=== PATIENT | female | born 1990 | race Caucasian/White ===

== ENCOUNTER 2022-07-22 21:17 | Emergency (ER) | payer MEDICAID ==
[~2022-07-22] VITALS: Ht 160 cm; Wt 55.3 kg
[2022-07-22 21:48] VITALS: BP 135/80
[2022-07-22] MEDS ORDERED: ACETAMINOPHEN 325 MG TAB PO ONE (22:45)
[2022-07-22] MEDS ORDERED: KETOROLAC 15 MG/ML VIAL IM ONE (22:45)
[2022-07-22] MEDS ORDERED: ONDANSETRON 4 MG ODT PO ONE (22:45)
[2022-07-22 23:11] LABS: BASOPHILS % (AUTO) 0.3 % (0.0-2.0); EOSINOPHILS # (AUTO) 0.1 K/uL (0-0.4); EOSINOPHILS % (AUTO) 1.3 % (0.0-4.0); HEMATOCRIT 37.1 % (36-48); HEMOGLOBIN 12.5 g/dL (12.0-16.0); LYMPHOCYTES # (AUTO) 3.2 K/uL (2.5-16.5); MEAN CORPUSCULAR HEMOGLOBIN 29 pg (27-31); MEAN CORPUSCULAR HGB CONC 34 g/dL (33-37); MEAN CORPUSCULAR VOLUME 87.2 fL (80-94); MONOCYTES # (AUTO) 0.8 K/uL (0.8-1.0); MONOCYTES % (AUTO) 8.8 % (1.7-9.3); NEUTROPHILS # (AUTO) 4.9 K/uL (1.8-7.7); NEUTROPHILS % (AUTO) 54.6 % (42.2-75.2); PLATELET COUNT (AUTO) 334 K/uL (140-450); RED BLOOD CELL COUNT(AUTO) 4.25 MIL/uL (4.20-5.40); RED CELL DISTRIBUTION WIDTH 13.1 % (11.6-13.7)
[2022-07-22 23:34] LABS: ALBUMIN 3.7 g/dL (3.4-5.0); ANION GAP 7.7 (8-16); CARBON DIOXIDE 30.9 mmol/L (21-32); CREATININE 0.8 mg/dL (0.6-1.3); POTASSIUM 3.6 mmol/L (3.5-5.1); TOTAL BILIRUBIN 0.5 mg/dL (0.0-1.0)
[2022-07-23] MEDS ORDERED: ONDANSETRON 4 MG ODT ONE (00:29)
[2022-07-23] MEDS ORDERED: ACETAMINOPHEN 325 MG TAB ONE (00:29)
[2022-07-23] MEDS ORDERED: KETOROLAC 15 MG/ML VIAL ONE (00:30)
--- NOTE | 2022-07-23 00:48 | NUR ---
Pt placed in ED rm 12. Placed on monitor. Appears in no acute distress.
--- NOTE | 2022-07-23 00:50 | NUR ---
MD Smith at bedside examining pt.
--- NOTE | 2022-07-23 01:21 | NUR ---
Urine collected and sent to lab.
[2022-07-23 01:30] LABS: APPEARANCE,URINE CLEAR (CLEAR); BILIRUBIN,URINE NEGATIVE (NEGATIVE); BLOOD, URINE 1+ (NEGATIVE); COLOR,URINE YELLOW (YELLOW); LEUKOCYTE ESTERASE ,URINE NEGATIVE (NEGATIVE); NITRITE, URINE NEGATIVE (NEGATIVE); UGLUCOSE NEGATIVE (NEGATIVE)
[2022-07-23 01:38] LABS: WBC,URINE 0-5 /HPF (0-5)
[2022-07-23] MEDS ORDERED: ONDA-188 SL (02:03)
[2022-07-23] MEDS ORDERED: ACET-10509 PO (02:03)
[2022-07-23] MEDS ORDERED: FAMO-92 PO (02:03)
[2022-07-23 02:30] VITALS: BP 129/78
--- NOTE | 2022-07-23 03:00 | NUR ---
Patient ready for discharge; left without Written and verbal after care instructions. Attempted to locate in ED and WR.
== END 2022-07-23 03:50 | disposition home or self-care (01) ==
LOC: MED 21:17
DX: K80.20 Calculus of gallbladder without cholecystitis without obstruction (principal); Z98.890 Other specified postprocedural states; Z79.899 Other long term (current) drug therapy
CPT/HCPCS: 36415; 76705; 80053; 81001; 81025; 83690; 85025; 87086; 96372; 99285; J1885; Q0162